=== PATIENT | female | born 1985 | race Caucasian/White ===

== ENCOUNTER 2019-04-17 10:39 | Inpatient (IN) ==
[2019-04-17] MEDS ORDERED: MORPHINE IV ONE ×2 (11:27→15:16)
[2019-04-17] MEDS ORDERED: ZOFRAN IV ONE ×2 (11:27→15:16)
[2019-04-17] MEDS ORDERED: EPI INJ ONE (11:29)
[2019-04-17] MEDS ORDERED: XYLOCAINE INJ ONE (11:29)
--- NOTE | 2019-04-17 11:29 | PROVIDER DOCUMENTATION ---
HPI-Rash/Wound/ReCheck - General Chief Complaint: Abscess Stated Complaint: ABSCESS,FEVER Time Seen by Provider: 04/17/19 10:49 Source: patient Allergies/Adverse Reactions: Allergies Allergy/AdvReac Type Severity Reaction Status Date / Time levofloxacin [From Levaquin] Allergy RASH Verified 04/17/19 10:54 Opioids - Morphine Analogues AdvReac NAUSEA/VOMI Verified 04/17/19 12:03 TING Opioids-Meperidine and AdvReac NAUSEA/VOMI Verified 04/17/19 12:03 Related TING Opioids-Methadone and Related AdvReac NAUSEA/VOMI Verified 04/17/19 12:03 TING Home Medications: Home Medication List Medication Instructions Recorded Confirmed Last Taken Type NK [No Home Medications] 04/17/19 04/17/19 Unknown History - History of Present Illness-Dermatology Nature of Presenting Problem: Patient is a 33 yof who c/o an abscess to perirectal region x 1 week. Denies fever or any other complaints. Pt non-toxic. Review of Systems - Adult - REVIEW OF SYSTEMS - ADULT Constitutional: reports: no symptoms reported. denies: chills, fever Eyes: reports: no symptoms reported Ears, Nose, Mouth & Throat: reports: no symptoms reported Cardiovascular: reports: no symptoms reported Respiratory: reports: no symptoms reported Gastrointestinal: reports: no symptoms reported Genitourinary: reports: no symptoms reported Musculoskeletal: reports: no symptoms reported Integumentary: reports: see HPI Neurological: reports: no symptoms reported Psychiatric: reports: no symptoms reported Endocrine: reports: no symptoms reported Hematologic/Lymphatic: reports: no symptoms reported Allergic/Immunologic: reports: no symptoms reported All Other Systems: Reviewed and Negative Past History - Adult - PAST MEDICAL HISTORY-ADULT Review of Records: reports: Nursing Assessment Review, Medications Reviewed, Social history reviewed & non-contributory. Major Childhood Illnesses: reports: denies history Cardiovascular: reports: denies history Respiratory: reports: denies history Gastrointestinal: reports: denies history Genitourinary: reports: denies history Musculoskeletal: reports: denies history Neurological: reports: denies history Psychiatric: reports: denies history Endocrine/Immune: reports: Diabetes Diabetes Type: Type 2 Diabetes controlled by:: Diet Other Conditions: reports: denies history - PRIOR SURGERIES/PROCEDURES Surgical/Procedure History: reports: reviewed, not pertinent - FAMILY HISTORY Family History: reviewed, not pertinent Physical Exam-General - PHYSICAL EXAM-ADULT Initial Vital Signs Reviewed: Yes - CONSTITUTIONAL General Appearance: alert, mild distress (tearful, in pain). negative: lethargic, slow to respond - EYES Eyes: PERRL/EOMI, pink conjunctivae - HEAD, EARS, NOSE, MOUTH & THROAT HENMT: normocephalic/atraumatic, moist mucous membranes - NECK Neck: full range of motion, supple, normal inspection - RESPIRATORY Respiratory: no respiratory distress, no accessory muscle use - GENITOURINARY Rectal Exam: tenderness (Fluctuent abscess noted adjacent to right side of rectum with induration and erythema extending to perirectal region) - MUSCULOSKELETAL Back Exam: normal inspection Extremity: normal range of motion, normal gait, normal inspection - SKIN Integumentary: normal color, warm/dry, other (see note above regarding abscess). negative: cyanosis, diaphoresis, jaundice, mottled, pallor - NEUROLOGIC Neurologic: grossly normal, no motor/sensory deficits - PSYCHIATRIC Psych/Mental Status: normal thought content, normal thought process, oriented x 3, anxious, tearful Progress - PLAN OF CARE/RESULTS Progress/Plan/Lab Results: Vital Signs - 8 hr 04/17/19 10:40 04/17/19 14:16 Temperature 98.1 F 99.1 F Pulse Rate 128 H 113 H Respiratory Rate 18 16 Blood Pressure 158/102 119/77 O2 Sat by Pulse Oximetry 98 100 Laboratory Results - last 24 hr 04/17/19 04/17/19 04/17/19 11:45 11:45 11:45 WBC 13.44 H RBC 4.77 Hgb 14.1 Hct 41.5 MCV 87.0 MCH 29.6 MCHC 34.0 RDW Std Deviation 12.2 Plt Count 266 MPV 10.4 Immature Gran % (Auto) 0.2 Neut % (Auto) 76.3 H Lymph % (Auto) 14.0 L Talbot % (Auto) 8.9 Eos % (Auto) 0.4 Baso % (Auto) 0.2 Immature Gran # (Auto) 0.03 Neut # (Auto) 10.24 H Lymph # (Auto) 1.88 Talbot # (Auto) 1.20 H Eos # (Auto) 0.06 Baso # (Auto) 0.03 Sodium 137 Potassium 3.9 Chloride 100 Carbon Dioxide 22 L Anion Gap 15 BUN 7 L Creatinine 0.5 Estimated GFR/1.73 m2 > 60 BUN/Creatinine Ratio 14 Glucose 231 H Calculated Osmolality 279 Calcium 8.9 Total Bilirubin 0.77 AST 9 L ALT 18 Alkaline Phosphatase 78 Total Protein 6.3 Albumin 3.7 Globulin 2.6 Albumin/Globulin Ratio 1.4 Plasma Lactate 1.1 Orders Category Date Time Status I&D [I and D Set up] DIRECTED Care 04/17/19 11:29 Active NEWS Score 2-4:Order NEWS Lactate Series NOW Care 04/17/19 10:45 Active Saline Loc NOW Care 04/17/19 11:[address] PELVIS W/CONTRAST [CT] Stat Exams 04/17/19 12:42 Completed BLOOD CULTURE [BLDCUL] Stat Lab 04/17/19 11:52 Results CBC WITH DIFF [HEME] Stat Lab 04/17/19 11:45 Completed COMPREHENSIVE METABOLIC PANEL [CHEM] Stat Lab 04/17/19 11:45 Completed LACTATE, PLASMA [CHEM] Stat Lab 04/17/19 11:45 Completed 0.9% Sodium Chloride Inj [Ns] 500 ml Med 04/17/19 12:37 Discontinued IV 999 mls/hr Clindamycin 600 mg/D5w Med 04/17/19 15:20 Discontinued 600 mg in 50 ml IV NOW Clindamycin 600 mg/Ns Med 04/17/19 15:16 Discontinued 600 mg in 50 ml IV NOW Lidocaine 0.5%/Epi 1:200,000 [Xylocaine 0.5%/Epi 1:200, Med 04/17/19 11:29 Discontinued 000] 50 ml INJ NOW ONE Lorazepam [Ativan] Med 04/17/19 15:16 Discontinued 0.5 mg IV NOW ONE Lorazepam [Ativan] Med 04/17/19 15:37 Discontinued 0.5 mg PO NOW ONE Morphine Med 04/17/19 11:27 Discontinued 4 mg IV NOW ONE Morphine Med 04/17/19 15:16 Discontinued 4 mg IV NOW ONE Ondansetron [Zofran] Med 04/17/19 11:27 Discontinued 4 mg IV NOW ONE Ondansetron [Zofran] Med 04/17/19 15:16 Discontinued 4 mg IV NOW ONE Transfer/Admit Order [TRANSFER] Routine Transfer 04/17/19 15:55 Ordered Result Diagrams: 04/17/19 11:45 02/24/20 11:45 - REASSESSMENT Reassessment #1 Time Reassessed: 11:29 Status: other (Dr. Wilkins assessed abscess and recommends surgery consult after obtaining blood work. Verified that morphine allergy is n/v, pt has only taken po opiods in the past, no anaphylactic reactions in the past.) Reassessment #2 Time Reassessed: 15:17 Status: other (Pain returned, will medicate prior to I&D. Pt wishes to be ad mitted, states she does not feel comfortable going home. Pt admitted to [facility] service in stable condition.) - CT/MRI 1 CT Study: Pelvis ([facility] - [address] , [address], [place] [address] [facility] - [address] , [place] [address] Department of Imaging Patient: RE LINARES Date: 04/17/19#: [id number] : 1985ADM Status: REG [facility]#: [id number] Age/Sex: 33/FRoom/Bed: Loc: ED Ordering Physician: Beth Knox Family Physician: None,PCP Reason for Procedure: perirectal abscess Signed CT PELVIS W/CONTRAST - 04/17/2019 INDICATION: perirectal abscess COMPARISON: None FINDINGS: There is a superficial subcutaneous soft tissue gas and fluid collection in the right buttock, at the inferior gluteal crease. The gas and fluid collection measures 3.8 x 3.6 cm. There is significant surrounding cellulitis. Internally, there is some pelvic free fluid. Otherwise the urinary bladder, uterus, and rectum are normal. Bones are intact and normally aligned. IMPRESSION: Extremely superficial subcutaneous abscess in the inferior right buttock. Surrounding cellulitis. This exam was performed using automated exposure control, adjustment of mA or kV according to patient size, and/or use of iterative reconstruction technique Electronically signed by Abraham Preciado 04/17/2019 2:20 PM 04/17/19 1420 Interpreting Physician: Abraham Preciado MD Dictated Date/Time: 04/17/19 1418 cc: Beth Knox; None,PCP) - CONSULTS/PCP/HOSPITALIST Notification #1 *Consult/PCP/Hospitalist*: Dr. Arzate Time Discussed: 12:37 Reason/Comments: requests CT scan to evaluate extensivity #2 Consult: Dr. Arzate Time Discussed: 14:55 Reason/Comments: CT pelvis result Consult Disposition: other (Recommends offering admission for IV abx vs. discharge and bedside I&D) #3 Consult: MAGALI Stacy NP Time Discussed: 15:17 Reason/Comments: admission-perirectal abscess Consult Disposition: Admit (Tawanna aware that Dr. Arzate wishes to be consulted.) Procedures - INCISION & DRAINAGE Site: perirectal Abscess Type: Simple Prepped with: Victor M Bernstein Anesthetic: 1%, Lidocaine w/ Epinephrine Volume of Anesthetic (ml's): 15 Blade Size: 11 Packing placed?: Yes Sterile Dressing Applied?: Yes Drainage: Large Amount, Purulent Departure - Departure Date of Disposition Decision: 04/17/19 Time of Disposition Decision: 15:18 DIAGNOSIS: Perirectal abscess Disposition: ADMITTED INPATIENT 09 Certified Medical Emergency: Emergent Condition: Stable - Critical Care Note This patient required my direct & personal management of CC.: No Attestation - Physician/ ISAC Attestation Patient care was provided by Advanced Practice Provider:: Yes Advanced Practice Provider:: Beth Knox Advanced Practice Provider documentation review:: The Mid-level provider docu mentation, treatment plan and medical decision making was reviewed by the physician who agrees with all treatment and medical decision making by the MLP. The physician spent face to face time with patient:: Yes (Dr. Wilkins) Advanced Practice Provider documentation review:: Supervising physician onsite and consulted in the evaluation and care of this patient. The physician did have a face to face encounter with the patient.
[2019-04-17 12:13] LABS: BASO# 0.03 X1000 (0.0-0.2); BASO% 0.2 % (0.0-0.8); EOS# 0.06 X1000 (0.0-0.7); EOS% 0.4 % (0.0-10.0); HEMATOCRIT 41.5 % (37.0-47.0); HEMOGLOBIN 14.1 g/dL (12.0-16.0); IMM GRAN# 0.03 X1000 (0.0-0.04); IMM GRAN% 0.2 % (0.0-0.5); LYMPH# 1.88 X1000 (1.2-3.4); MCH 29.6 PG (27-31); MONO% 8.9 % (1.7-9.3); MPV 10.4 FL (7.4-10.4); NEUT# 10.24 X1000 (1.4-6.5); NEUT% 76.3 % (42.2-75.2); PLT 266 X1000 (130-400); RBC 4.77 XMIL (4.2-5.4); RDW 12.2 % (11.5-14.5); WBC 13.44 X1000 (4.8-10.8)
[2019-04-17 12:22] LABS: AGAP 15; ALB/GLOB RATIO 1.4; ALBUMIN 3.7 g/dL (3.5-5.0); ALKALINE PHOSPHATASE 78 U/L (32-104); BUN 7 mg/dL (8-22); CALCIUM 8.9 mg/dL (8.8-10.2); CHLORIDE 100 mmol/L (98-107); COSMO 279; CREATININE 0.5 mg/dL (0.5-0.9); ESTIMATED GFR > 60; GLUCOSE 231 mg/dL (70-104); GOT 9 U/L (10-30); GPT 18 U/L (10-36); POTASSIUM 3.9 mmol/L (3.5-5.1); SODIUM 137 mmol/L (136-145); TCO2 22 mmol/L (25-35); TOTAL BILIRUBIN 0.77 mg/dL (0.20-1.00); TOTAL PROTEIN 6.3 g/dL (6.3-8.3)
[2019-04-17] MEDS ORDERED: NS 500 ML IV ONE (12:37)
--- NOTE | 2019-04-17 14:22 | Diag Imaging Result Doc PS360 ---
CT PELVIS W/CONTRAST - 04/17/2019 INDICATION: perirectal abscess COMPARISON: None FINDINGS: There is a superficial subcutaneous soft tissue gas and fluid collection in the right buttock, at the inferior gluteal crease. The gas and fluid collection measures 3.8 x 3.6 cm. There is significant surrounding cellulitis. Internally, there is some pelvic free fluid. Otherwise the urinary bladder, uterus, and rectum are normal. Bones are intact and normally aligned. IMPRESSION: Extremely superficial subcutaneous abscess in the inferior right buttock. Surrounding cellulitis. This exam was performed using automated exposure control, adjustment of mA or kV according to patient size, and/or use of iterative reconstruction technique Electronically signed by Abraham Preciado 04/17/2019 2:20 PM
[2019-04-17] MEDS ORDERED: ATIVAN IV ONE (15:16)
[2019-04-17] MEDS ORDERED: CLINDAMYCIN 600 MG/NS 600 MG/50 ML IVPB IV ONE (15:16)
[2019-04-17] MEDS ORDERED: CLINDAMYCIN 600 MG/D5W 600 MG/50 ML IVPB IV ONE (15:20)
[2019-04-17] MEDS ORDERED: ATIVAN PO ONE (15:37)
[2019-04-17] MEDS ORDERED: TYLENOL PO PRN (17:16)
[2019-04-17] MEDS ORDERED: VANCOMYCIN IV PER PHARMACY MISC SCH (17:16)
--- NOTE | 2019-04-17 19:51 | HISTORY AND PHYSICAL ---
CHIEF COMPLAINT: Intragluteal pain and pain in the upper portion of the buttocks. HISTORY OF PRESENT ILLNESS: This is a 33-year-old female with history of diabetes non insulin dependent. She came in from work. She came in today because of worsening pain in her perirectal area. It has been going on for about a week, but now has gotten much worse. She cannot bear pressure on that area. It does not sound like there has been any drainage or anything from that affect, but she came in for treatment and she has a fairly large perirectal abscess, but in any case, I mean she is usually pretty well controlled diabetic. She has never had significant cellulitis. CT scan confirmed a superficial abscess, although it looks a lot bigger on exam than as described and she has surrounding cellulitis, but I do think she is going to need an I and D, possibly 1 done in the OR. PAST MEDICAL HISTORY: 1. Type 2 diabetes noninsulin dependent. 2. Polycystic ovarian syndrome. PAST SURGICAL HISTORY: Tonsillectomy and wisdom teeth removal. FAMILY HISTORY: Diabetes and CAD in both mother and father. SOCIAL HISTORY: Occasional tobacco. Occasional ethanol use. ALLERGIES: To Levaquin and morphine analogs. MEDICATIONS: Nothing is listed. I do not think she takes any medicines for her diabetes. REVIEW OF SYSTEMS: No weight loss. No vision changes. No syncope. No chest pain. No shortness of breath. No palpitations. No nausea, vomiting, diarrhea. No bleeding. No dysuria. Otherwise negative times a 10 point review of systems. PHYSICAL EXAM: VITAL SIGNS: Blood pressure is 122/85, heart rate of 125, respiratory rate of 16, temperature 99.9 degrees. GENERAL: A well-developed female in no acute distress. HEAD EXAM: Was normocephalic, atraumatic. EYE EXAM: Pupils equal, round, reactive to light extraocular moves were intact. EAR, NOSE AND THROAT EXAM: He had moist mucous membranes. NECK EXAM: Was supple. CARDIOVASCULAR: Was regular rate and rhythm. No murmurs, gallops or rubs. PULMONARY EXAM: Bilateral breath sounds clear to auscultation. GI: Was soft, nontender, nondistended. Bowel sounds are positive. SKIN EXAM: She had, I would say 3 probably 4 cm erythematous, very tender, very indurated area in the superior portion of her left gluteal fold, right at the apex. She had about a 1 to 1.5 to 2 cm lesion which was fluctuant and look like the head of the abscess. She had a smaller tiny area of abscess, but nothing was freely draining and she had surrounding erythema and induration. LABORATORY DATA: White count is 13, hemoglobin and hematocrit 14 and 41. Platelets of 266,000, glucose 231. CT showed superficial subcutaneous soft tissue gas and fluid collection on the right. It is 3.8 x 3.6 cm. IMPRESSION: 1. She has a perirectal abscess. She has a cellulitis. She will need an I and D, I think preferentially in the OR. I do not think bedside lancing is going to be enough, but we will continue antibiotics, vancomycin and clindamycin and follow clinically. 2. Type 2 diabetes. Continue to monitor blood sugars and treat accordingly. Sliding scale in the meantime. She is not on regular medications and check an A1c. DISPOSITION: Pending her clinical course. cc: Les Earl MD
[2019-04-17] MEDS: HUMULIN R SUBQ SCH (21:00)
[2019-04-17] MEDS: ZOFRAN IV PRN (23:27)
[2019-04-17] MEDS: MORPHINE IV PRN (23:27)
[2019-04-17] MEDS: VANCOMYCIN 1.5 GM in NS 250 ML IV SCH (23:28)
[2019-04-18] MEDS: CLINDAMYCIN 600 MG/D5W 600 MG/50 ML IVPB IV SCH ×3 (03:26→18:03)
[2019-04-18 07:41] LABS: BASO# 0.02 X1000 (0.0-0.2); BASO% 0.2 % (0.0-0.8); EOS# 0.09 X1000 (0.0-0.7); EOS% 0.9 % (0.0-10.0); HEMATOCRIT 38.9 % (37.0-47.0); HEMOGLOBIN 13.1 g/dL (12.0-16.0); IMM GRAN# 0.04 X1000 (0.0-0.04); IMM GRAN% 0.4 % (0.0-0.5); LYMPH# 2.31 X1000 (1.2-3.4); LYMPH% 22.8 % (20.5-51.1); MCH 29.6 PG (27-31); MCHC 33.7 g/dL (33-37); MONO# 1.08 X1000 (0.11-0.59); MONO% 10.7 % (1.7-9.3); MPV 10.4 FL (7.4-10.4); NEUT# 6.58 X1000 (1.4-6.5); PLT 243 X1000 (130-400); RBC 4.42 XMIL (4.2-5.4); RDW 12.2 % (11.5-14.5); WBC 10.12 X1000 (4.8-10.8)
[2019-04-18 08:00] LABS: HEMOGLOBIN A1C 9.6 % (4.8-6.0)
[2019-04-18 08:07] LABS: AGAP 13; ALB/GLOB RATIO 1.1; ALBUMIN 3.2 g/dL (3.5-5.0); ALKALINE PHOSPHATASE 70 U/L (32-104); BUN 5 mg/dL (8-22); CALCIUM 8.2 mg/dL (8.8-10.2); CHLORIDE 99 mmol/L (98-107); COSMO 271; CREATININE 0.6 mg/dL (0.5-0.9); ESTIMATED GFR > 60; GLUCOSE 204 mg/dL (70-104); GOT 9 U/L (10-30); GPT 13 U/L (10-36); POTASSIUM 3.5 mmol/L (3.5-5.1); SODIUM 134 mmol/L (136-145); TCO2 22 mmol/L (25-35)
[2019-04-18] MEDS: HUMULIN R SUBQ SCH ×4 (08:30→23:13)
--- NOTE | 2019-04-18 09:02 | GENERAL SURGERY CONSULTATION ---
DATE: 04/18/2019 REQUESTING PHYSICIAN: Dr. Earl. REASON FOR CONSULTATION: Concerning gluteal abscess. HISTORY OF PRESENT ILLNESS: A 33-year-old female with a history of diabetes who came in from work stating she had worsening pain in the perirectal area. She was seen in the emergency department and was found to have a large fluctuant area for the perirectal abscess. She had a CT scan that showed superficial abscess. It was drained in the emergency department, and they got a significant amount of purulence out, and the patient is feeling better but still somewhat tender back there. Otherwise, she is doing okay. I was asked to weigh an opinion. PAST MEDICAL HISTORY: 1. Type 2 diabetes. 2. Polycystic ovarian syndrome. PAST SURGICAL HISTORY: Includes tonsillectomy and wisdom teeth. FAMILY HISTORY: Positive for diabetes and coronary artery disease. SOCIAL: Occasional tobacco, occasional alcohol. ALLERGIES: Levaquin and morphine. MEDICATIONS: Full list reviewed. REVIEW OF SYSTEMS: A full 14 systems reviewed and negative except as specified in HPI. PHYSICAL EXAMINATION: Vital Signs: Patient is currently afebrile. Vital signs are stable. General: No acute distress. Alert, interactive female, looks her stated age. HEENT: Normocephalic, atraumatic. Pupils equal, round, reactive to light. Mucous membranes moist. Oropharynx benign. Neck: Supple. Trachea midline. Cardiovascular: Regular rate and rhythm. Lungs: Grossly clear. Abdomen: Soft, nontender, nondistended. Extremities: Moves all extremities. Neurologic: Grossly intact. Skin: Area to her gluteal fold noted more prominent on the right gluteal muscle. There is a previous incision and drainage where I removed the packing. No more significant purulence encountered. The area had some induration, but the fluctuance seems to be better. The tenderness is better per the patient. Vascular: All extremities perfused. Neurologic: Grossly intact. LABORATORY: White blood cell count yesterday was 13. Remainder of labs reviewed. CT scan independently reviewed and radiology report reviewed. ASSESSMENT AND PLAN: A 33-year-old female with gluteal abscess. Gluteal abscess: At this time, she has had it drained. I did offer further debridement in the operating room, but she wants to hold off right now. Says she is feeling better. We discussed doing sitz baths and start her on a diabetic diet and see how she does. Would recommend continued antibiotics as prescribed by the hospitalist. We will continue to follow. If she does seem to get worse, we will consider further debridement. cc: MD LINSEY Felton
[2019-04-18] MEDS: ZOFRAN IV PRN ×2 (11:32→23:29)
[2019-04-18] MEDS: VANCOMYCIN 1.5 GM in NS 250 ML IV SCH (14:37)
[2019-04-18] MEDS: MORPHINE IV PRN ×2 (14:41→23:29)
[2019-04-18] MEDS ORDERED: GLUCOPHAGE PO SCH (17:30)
--- NOTE | 2019-04-18 17:56 | PROGRESS NOTE ---
DATE: 04/18/2019 SUBJECTIVE: The patient has no major complaints. She is doing better. She looks just totally different. OBJECTIVE: Blood pressure is 137/86, heart rate of 94, respiratory rate 18, temperature 98.6 degrees, 99% on room air. Cardiovascular: Regular rate and rhythm. Pulmonary: Bilateral breath sounds, diminished at bases. GI was soft, nontender, nondistended. Bowel sounds are positive. LABORATORY DATA: White count 10, hemoglobin and hematocrit 13 and 38, platelets 243,000. Basic was normal. Glucose 204. A1c 9.6. Cultures have not grown out anything yet. ASSESSMENT AND PLAN: 1. Perirectal abscess with surrounding cellulitis. This has been incised and drained in the emergency room. Cultures are pending. She is on vancomycin and clindamycin, day 1, I guess since they were initiated yesterday. She seems to be doing much better. It is still actively draining, though, so we will continue intravenous antibiotics for another day or two, pending culture results. 2. Type 2 diabetes. I think she is diet-controlled, but obviously she is not diet-controlled because her A1c is 9.6. We probably need to initiate some medications. I will start metformin. We will keep an eye on her blood sugars, and encourage compliance with diabetes. 3. Disposition: Hopefully home soon. Like I said, it may be another 1-2 days. cc: Les Earl MD
[2019-04-18] MEDS: GLUCOTROL PO SCH (18:15)
[2019-04-19] MEDS: CLINDAMYCIN 600 MG/D5W 600 MG/50 ML IVPB IV SCH ×3 (03:46→18:51)
--- NOTE | 2019-04-19 06:31 | GENERAL SURGERY PROGRESS NOTE ---
DATE: 04/19/2019 SUBJECTIVE: Patient says she is feeling better. OBJECTIVE: Vital Signs: Patient is currently afebrile. Her vital signs stable. General: No acute distress. HEENT: Normocephalic, atraumatic. Pupils equal, round, reactive to light. Mucous membranes moist. Oropharynx benign. Neck: Supple. Trachea midline. Cardiovascular: Regular rate and rhythm. Lungs: Grossly clear. Abdomen: Soft, nontender, nondistended. Rectal area seems to be improving with induration with erythema. Extremities: Moves all extremities. Neurologic: Grossly intact. Skin: No signs of jaundice. Vascular: All extremities perfused. LABORATORY: None this morning as of yet. ASSESSMENT AND PLAN: A 33-year-old female with perirectal abscess. #1 perirectal abscess. At this time seems to be clinically improving. We will hopefully be able to get microbiology data back and tailor her antibiotics but I do not think she is going to need further debridement or drainage in the operating room at this point. cc: Luther Arzate MD
[2019-04-19 07:42] LABS: BASO# 0.02 X1000 (0.0-0.2); BASO% 0.3 % (0.0-0.8); EOS# 0.14 X1000 (0.0-0.7); EOS% 2.1 % (0.0-10.0); HEMATOCRIT 39.4 % (37.0-47.0); HEMOGLOBIN 13.1 g/dL (12.0-16.0); IMM GRAN# 0.03 X1000 (0.0-0.04); IMM GRAN% 0.5 % (0.0-0.5); LYMPH% 33.4 % (20.5-51.1); MCH 29.4 PG (27-31); MCHC 33.2 g/dL (33-37); MCV 88.5 FL (81-99); MONO# 0.78 X1000 (0.11-0.59); MONO% 11.9 % (1.7-9.3); MPV 9.9 FL (7.4-10.4); NEUT# 3.41 X1000 (1.4-6.5); NEUT% 51.8 % (42.2-75.2); PLT 263 X1000 (130-400); RBC 4.45 XMIL (4.2-5.4); RDW 12.2 % (11.5-14.5); WBC 6.58 X1000 (4.8-10.8)
[2019-04-19] MEDS: HUMULIN R SUBQ SCH ×4 (07:58→21:15)
[2019-04-19 08:13] LABS: AGAP 10; BUN 7 mg/dL (8-22); CALCIUM 8.2 mg/dL (8.8-10.2); CHLORIDE 103 mmol/L (98-107); COSMO 280; CREATININE 0.5 mg/dL (0.5-0.9); ESTIMATED GFR > 60; GLUCOSE 177 mg/dL (70-104); POTASSIUM 4.4 mmol/L (3.5-5.1); SODIUM 139 mmol/L (136-145); TCO2 26 mmol/L (25-35)
[2019-04-19] MEDS: VANCOMYCIN 1.5 GM in NS 250 ML IV SCH (08:24)
[2019-04-19] MEDS: GLUCOTROL PO SCH (08:25)
[2019-04-19] MEDS: MORPHINE IV PRN ×2 (11:51→23:09)
[2019-04-19] MEDS: ZOFRAN IV PRN (11:51)
--- NOTE | 2019-04-19 17:41 | PROGRESS NOTE ---
DATE: 04/19/2019 SUBJECTIVE: Patient has no major complaints. OBJECTIVE: Blood pressure 115/75, heart rate 93, respiratory rate 16, and temperature 98.6 degrees.Cardiovascular: Regular rate and rhythm. Pulmonary: Bilateral breath sounds. Clear to auscultation. GI: Soft, nontender, and nondistended. Bowel sounds are positive. LABORATORY DATA: White count 6. Basics normal sugars down to below 200 at least. PROBLEM LIST: 1. Perirectal abscess with cellulitis. It is improving. She is currently on vancomycin and clindamycin, and hopefully can discharge her on oral antibiotics soon so we will see how things look tomorrow. 2. Diabetes, has improved somewhat. She is intolerant to metformin due to diarrhea so we will continue glipizide and follow. DISPOSITION: Hopefully, once we can get culture results tomorrow, she should be able to go tomorrow. cc: Les Earl MD
[2019-04-20] MEDS: CLINDAMYCIN 600 MG/D5W 600 MG/50 ML IVPB IV SCH ×2 (02:49→12:11)
[2019-04-20] MEDS: VANCOMYCIN 1,550 MG in NS 250 ML IV SCH ×2 (04:35→16:23)
--- NOTE | 2019-04-20 06:18 | GENERAL SURGERY PROGRESS NOTE ---
DATE: 04/20/2019 SUBJECTIVE: Patient seems to be doing better. OBJECTIVE: Vital Signs: Patient is currently afebrile. Vital signs are stable. General: No acute distress. HEENT: Normocephalic, atraumatic. Pupils equal, round, and reactive to light. Mucous membranes moist. Oropharynx benign. Neck: Supple. Trachea midline. Cardiovascular: Regular rate and rhythm. Lungs: Grossly clear. Abdomen: Soft and nontender. Gluteal region improved, induration areas look less. Extremities: Moves all extremities. Neurologic: Grossly intact. Skin: As noted above. Vascular: All extremities perfused. LABORATORY: White blood cell count from yesterday is trending down. Microbiology shows gram- positive cocci, but speciation has not occurred. ASSESSMENT/PLAN: A 33-year-old female with gluteal abscess. Gluteal abscess at this time, suspect she can probably transition over to clindamycin or Bactrim, but will defer to the hospitalist. From a surgical point of view, she needs no further debridement or drainage. I think she is improving well. We will continue to follow while she is in the hospital. cc: Luther Arzate MD
[2019-04-20] MEDS: HUMULIN R SUBQ SCH ×3 (07:29→16:21)
[2019-04-20] MEDS: GLUCOTROL PO SCH (08:27)
[2019-04-20 15:12] VITALS: BP 123/87
--- NOTE | 2019-04-20 21:08 | DISCHARGE SUMMARY ---
ADMISSION DATE: 04/17/2019 DISCHARGE DATE: 04/20/2019 DISCHARGE DIAGNOSIS: Gluteal abscess. The culture grew out Streptococcus agalactiae which was resistant to clindamycin, but it was sensitive to ampicillin, Levaquin which she is allergic to, penicillin, and vancomycin. Clinically, she has improved. Wound has dried out. There is a little bit of exudation, but overall she seems okay. No white count, no fever, so felt stable for discharge on amoxicillin 500 t.i.d. for another 10 days. I do think she needs better diabetes control. Glipizide 5 daily. Her A1c here was 9.6. So, this was a 33-year-old with polycystic ovarian syndrome and diabetes that she does not take medications for, coming in with a gluteal abscess. It was incised and drained in the ER, grew out Streptococcus agalactiae, and she is discharged on amoxicillin. The patient's PCP is not listed, but she should set up with somebody for management of her diabetes. cc: MD Luther Vasquez MD
== END 2019-04-20 20:00 | disposition home or self-care (01) | DRG 580 ==
LOC: ED 10:39 → EDIPHOLD 16:02 → 4N 18:09
PROVIDERS: ATTEND Internal Medicine